=== PATIENT | male | born 1945 | race Hispanic/Latino ===

== ENCOUNTER 2019-08-05 12:33 | Emergency (ER) | payer BC, MEDICARE, OTHER ==
[2019-08-05] MEDS ORDERED: NA CHLORIDE 0.9% 1,000 ML ONE ×2 (13:26→14:27)
[2019-08-05 13:56] LABS: Absolute Lymphocytes (CBC) 0.7 K/uL (0.7-4.9); Basophils % 0.1 % (0-1.3); Hematocrit 48.6 % (39.6-49.0); Lymphocytes % 7.8 % (15.3-44.8); MPV 10.8 fL (7.6-11.3); Protime INR 1.04; RBC Red Blood Cell Count 5.24 M/uL (4.33-5.43)
--- NOTE | 2019-08-05 13:57 | RAD REPORT ---
EXAM DESCRIPTION: RAD - Chest Single View - 08/05/2019 1:42 pm CLINICAL HISTORY: Weakness, shortness of breath COMPARISON: None. TECHNIQUE: AP portable chest image was obtained 1317 hours . FINDINGS: Lung volumes are low. No acute lung parenchymal process seen. Heart and vasculature are no rmal. No measurable pleural effusion and no pneumothorax. No acute bony abnormality seen. No acute ao rtic findings suspected. IMPRESSION: No acute cardiopulmonary process.
[2019-08-05 14:05] LABS: ALT/SGPT 23 U/L (12-78); AST/SGOT 20 U/L (15-37); Albumin 4.1 g/dL (3.4-5.0); Alkaline Phosphatase 68 U/L (45-117); BUN Blood Urea Nitrogen 30 mg/dL (7-18); Bicarbonate 23 mmol/L (21-32); Bilirubin Direct 0.3 mg/dL (0-0.2); CKMB Creatine Kinase MB 1.8 ng/mL (0.3-3.6); Creatine Phosphokinase 117 U/L (39-308); Glucose Level 106 mg/dL (74-106); Lipase 135 U/L (73-393); Potassium 4.6 mmol/L (3.5-5.1); Sodium Level 132 mmol/L (136-145); Troponin (Emerg Dept Use Only) < 0.02 ng/mL (0.0-0.045)
[2019-08-05 15:12] LABS: Blood Morphology Comment NOT SEEN (NOT SEEN); Platelet Estimate ADEQ; Platelets, Giant PRESENT
--- NOTE | 2019-08-05 15:45 | ER ---
Nurse's Notes [facility] Name: Max Orona Age: 74 yrs Sex: Male : 1945 Arrival Date: 08/05/2019 Time: 12:35 Bed 15 Private MD: Gray Gooden Diagnosis: Weakness;Renal Insufficiency Presentation: 08/05 12:51 Presenting complaint: Patient states: not eating/drinking much for past 26 days, feels iw nauseous when he tries to eat or drink, has generalized weakness and has fallen twice at home, was seen by Dr. Gooden on Friday and was told to just "try to eat more". Transition of care: patient was not received from another setting of care. Onset of symptoms was July 13, 2019. Risk Assessment: Do you want to hurt yourself or someone else? Patient reports no desire to harm self or others. Initial Sepsis Screen: Does the patient meet any 2 criteria? No. Patient's initial sepsis screen is negative. Does the patient have a suspected source of infection? No. Patient's initial sepsis screen is negative. Care prior to arrival: None. 12:51 Method Of Arrival: Wheelchair iw 12:51 Acuity: MIRACLE 3 iw Historical: - Allergies: 12:57 No Known Allergies; iw - Home Meds: 12:57 aspirin 81 mg Oral TbEC 1 tab once daily [Active]; clonidine HCl 0.1 mg Oral tab 1 tab iw 2 times per day [Active]; metoprolol tartrate 25 mg Oral tab 1 tab 2 times per day [Active]; irbesartan 300 mg oral tab 1 tab once daily [Active]; - Immunization history:: Adult Immunizations up to date. - Ebola Screening: : Patient negative for fever greater than or equal to 101.5 degrees Fahrenheit, and additional compatible Ebola Virus Disease symptoms Patient denies exposure to infectious person Patient denies travel to an Ebola-affected area in the 21 days before illness onset No symptoms or risks identified at this time. - Social history:: Smoking status: Patient/guardian denies using tobacco. Screenin:50 Abuse screen: Denies threats or abuse. Nutritional screening: decreased appetite. rb1 Tuberculosis screening: No symptoms or risk factors identified. Fall Risk No fall in past 12 months (0 pts). Secondary diagnosis (15 points) weakness. No IV (0 pts). Ambulatory Aid- Crutches/Cane/Walker (15 pts). Gait- Weak (10 pts.). Mental Status- Oriented to own ability (0 pts). Total Damon Fall Scale indicates Low Risk Score (25-44 pts). Fall prevention measures have been instituted. Side Rails Up X 2 Placed close to Nursing Station 1:1 attendant Assigned to Pt. Frequent Obs/Assesments occuring Family Present and informed to notify staff if they need to leave bedside As available Patient and Family Educated on Fall Prevention Program and strategies. Assessment: 12:50 General: Appears in no apparent distress. comfortable, Behavior is calm, cooperative, rb1 Reports fatigue for Denies fever, Decreased appetite and general weakness x 3 weeks. Pain: Denies pain. Neuro: Level of Consciousness is awake, alert, obeys commands, Oriented to person, place, time, situation, Reports weakness in generalized since x 3 weeks. Cardiovascular: Capillary refill < 3 seconds is brisk in bilateral fingers. Respiratory: Reports cough that is Airway is patent Respiratory effort is even, unlabored, Respiratory pattern is regular, symmetrical. GI: Reports constipation, last BM was yesterday. : Reports decreases urine output. EENT: Throat Hoarseness is noted when the pt. speaks, family reports that this is not normal for him. Derm: Skin is pink, warm \\T\\ dry. Musculoskeletal: Pt. reports not being able to get up and move around due to being too weak. 13:50 Reassessment: Patient appears in no apparent distress at this time. No changes from rb1 previously documented assessment. 14:50 Reassessment: Patient appears in no apparent distress at this time. Patient and/or rb1 family updated on plan of care and expected duration. Pain level reassessed. Patient is alert, oriented x 3, equal unlabored respirations, skin warm/dry/pink. Patient denies pain at this time. Vital Signs: 12:50 Weight 60.78 kg (R); Height 5 ft. 3 in. (160.02 cm) (R); Pain 0/10; rb1 12:57 BP 189 / 94; Pulse 59; Resp 16 S; Temp 98.2; Pulse Ox 99% on R/A; iw 13:57 BP 188 / 85; Pulse 61; Resp 20; Pulse Ox 99% on R/A; rb1 14:55 BP 198 / 88; Pulse 67; Resp 17; Pulse Ox 99% on R/A; Pain 0/10; rb1 12:50 Body Mass Index 23.74 (60.78 kg, 160.02 cm) rb1 ED Course: 12:35 Patient arrived in ED. as 12:36 Gray Gooden DO is Private Physician. as 12:44 Scottie Jackson MD is Attending Physician. kdr 12:49 Amanda Tavera, RN is Primary Nurse. rb1 12:50 Patient has correct armband on for positive identification. Bed in low position. Call rb1 light in reach. Side rails up X2. Pulse ox on. NIBP on. 12:56 Triage completed. iw 12:57 Arm band placed on. iw 13:15 Initial lab(s) drawn, by me, sent to lab. First set of blood cultures drawn by me. jb1 Inserted saline lock: 22 gauge in right antecubital area, using aseptic technique. Blood collected. 13:30 Second set of blood cultures drawn by me. jb1 13:42 Chest Single View XRAY In Process Unspecified. EDMS 13:44 EKG done, by cytometry technologist. reviewed by Scottie Jackson MD. sm3 15:43 Gray Gooden DO is Referral Physician. kdr Administered Medications: 13:32 Drug: NS 0.9% (30 ml/kg) 30 ml/kg Route: IV; Rate: bolus; Site: right antecubital; rb1 14:54 Drug: NS 0.9% (30 ml/kg) 30 ml/kg Route: IV; Rate: bolus; Site: right antecubital; rb1 Output: 14:43 Urine: 250ml (Voided); Total: 250ml. rb1 Outcome: 15:44 Discharge ordered by . kdr 16:32 Patient left the ED. rb1 Signatures: Dispatcher [employer] EDMS Eduardo Marion jb1 Scottie Jackson MD MD kdr Danae Tijerina Irene, CINDY RN iw Amanda Tavera, CINDY RN rb1 Juliana Degroot sm3
--- NOTE | 2019-08-05 15:45 | EDPHYS ---
Physician Documentation [facility] Name: Max Orona Age: 74 yrs Sex: Male : 1945 Arrival Date: 08/05/2019 Time: 12:35 Bed 15 Private MD: Giacomo [facility] ED Physician Scottie Jackson HPI: 08/05 17:20 This 74 yrs old Male presents to ER via Wheelchair with complaints of kdr Decreased Appetite, General Weakness. 17:20 The [id number] states that for the past 25 day, the patient has become kdr increasingly weak. His appetite has been poor and he has lost greater than twenty pounds. He lost his not long ago and has been increasingly bed bound. He has no focal c/o and is o/w not in any acute threat. Family states that hi voice has been slightly more hoarse in the last few days but the patient denies any dysphagia. Onset: The symptoms/episode began/occurred gradually, 25 day(s) ago. Severity of symptoms: At their worst the symptoms were mild moderate in the emergency department the symptoms are unchanged. The patient has not experienced similar symptoms in the past. The patient has not recently seen a physician. Generally weak and loss of appetite. Historical: - Allergies: 12:57 No Known Allergies; iw - Home Meds: 12:57 aspirin 81 mg Oral TbEC 1 tab once daily [Active]; clonidine HCl 0.1 mg Oral tab 1 tab iw 2 times per day [Active]; metoprolol tartrate 25 mg Oral tab 1 tab 2 times per day [Active]; irbesartan 300 mg oral tab 1 tab once daily [Active]; - Immunization history:: Adult Immunizations up to date. - Ebola Screening: : Patient negative for fever greater than or equal to 101.5 degrees Fahrenheit, and additional compatible Ebola Virus Disease symptoms Patient denies exposure to infectious person Patient denies travel to an Ebola-affected area in the 21 days before illness onset No symptoms or risks identified at this time. - Social history:: Smoking status: Patient/guardian denies using tobacco. ROS: 17:20 Constitutional: Negative for fever, chills - he has had weight loss and generalized kdr weakness Eyes: Negative for injury, pain, redness, and discharge, Neck: Negative for injury, pain, and swelling, Cardiovascular: Negative for chest pain, palpitations, and edema, Respiratory: Negative for shortness of breath, cough, wheezing, and pleuritic chest pain, Abdomen/GI: Negative for abdominal pain, nausea, vomiting, diarrhea, and constipation, Back: Negative for injury and pain, : Negative for injury, bleeding, discharge, and swelling, MS/Extremity: Negative for injury and deformity, Skin: Negative for injury, rash, and discoloration, Neuro: Negative for headache, weakness, numbness, tingling, and seizure activity. Psych: Negative for depression, anxiety, suicide ideation, homicidal ideation, and hallucinations, Allergy/Immunology: Negative for hives, rash, and allergies, Endocrine: Negative for neck swelling, polydipsia, polyuria, polyphagia, and marked weight changes, Hematologic/Lymphatic: Negative for swollen nodes, abnormal bleeding, and unusual bruising. Exam: 17:20 Constitutional: This is a well developed, well nourished patient who is awake, alert, kdr and in no acute distress. Head/Face: Normocephalic, atraumatic. Eyes: Pupils equal round and reactive to light, extra-ocular motions intact. Lids and lashes normal. Conjunctiva and sclera are non-icteric and not injected. Cornea within normal limits. Periorbital areas with no swelling, redness, or edema. Neck: Trachea midline, no thyromegaly or masses palpated, and no cervical lymphadenopathy. Supple, full range of motion without nuchal rigidity, or vertebral point tenderness. No Meningismus. Chest/axilla: Normal chest wall appearance and motion. Nontender with no deformity. No lesions are appreciated. Cardiovascular: Regular rate and rhythm with a normal S1 and S2. No gallops, murmurs, or rubs. Normal PMI, no JVD. No pulse deficits. Respiratory: Lungs have equal breath sounds bilaterally, clear to auscultation and percussion. No rales, rhonchi or wheezes noted. No increased work of breathing, no retractions or nasal flaring. Abdomen/GI: Soft, non-tender, with normal bowel sounds. No distension or tympany. No guarding or rebound. No evidence of tenderness throughout. Back: No spinal tenderness. No costovertebral tenderness. Full range of motion. Skin: Warm, dry with normal turgor. Normal color with no rashes, no lesions, and no evidence of cellulitis. MS/ Extremity: Pulses equal, no cyanosis. Neurovascular intact. Full, normal range of motion. Psych: Awake, alert, with orientation to person, place and time. Behavior, mood, and affect are within normal limits. 17:20 Neuro: The patient is generally weak but otherwise is stable. Vital Signs: 12:50 Weight 60.78 kg (R); Height 5 ft. 3 in. (160.02 cm) (R); Pain 0/10; rb1 12:57 BP 189 / 94; Pulse 59; Resp 16 S; Temp 98.2; Pulse Ox 99% on R/A; iw 13:57 BP 188 / 85; Pulse 61; Resp 20; Pulse Ox 99% on R/A; rb1 14:55 BP 198 / 88; Pulse 67; Resp 17; Pulse Ox 99% on R/A; Pain 0/10; rb1 12:50 Body Mass Index 23.74 (60.78 kg, 160.02 cm) rb1 MDM: 15:44 Patient medically screened. kdr 17:20 Data reviewed: vital signs, nurses notes, lab test result(s), radiologic studies. kdr Counseling: I had a detailed discussion with the patient and/or guardian regarding: the historical points, exam findings, and any diagnostic results supporting the discharge/admit diagnosis, lab results, radiology results, the need for outpatient follow up. ED course: hosted services analyst came to the ED and helped facilitate Home Health Care. The patient was able to stand and pivot to a wheel chair without problems. 08/05 12:58 Order name: Basic Metabolic Panel; Complete Time: 14:50 kdr 08/05 12:58 Order name: Blood Culture Adult (2) kdr 08/05 12:58 Order name: CBC with Diff kdr 08/05 12:58 Order name: Ckmb; Complete Time: 14:50 kdr 08/05 12:58 Order name: CPK; Complete Time: 14:50 kdr 08/05 12:58 Order name: Lactate; Complete Time: 14:50 kdr 08/05 12:58 Order name: LFT's; Complete Time: 14:50 kdr 08/05 12:58 Order name: Lipase; Complete Time: 14:50 kdr 08/05 12:58 Order name: Procalcitonin; Complete Time: 14:50 kdr 08/05 12:58 Order name: Protime (+inr); Complete Time: 14:50 kdr 08/05 12:58 Order name: Ptt, Activated; Complete Time: 14:50 kdr 08/05 12:58 Order name: Troponin (emerg Dept Use Only); Complete Time: 14:50 kdr 08/05 12:58 Order name: Urine Microscopic Only kdr 08/05 13:39 Order name: Glucose, Ancillary Testing; Complete Time: 13:41 EDMS 08/05 12:58 Order name: Chest Single View XRAY; Complete Time: 14:50 kdr 08/05 12:58 Order name: Accucheck; Complete Time: 13:31 kdr 08/05 12:58 Order name: Cardiac monitoring; Complete Time: 13:31 kdr 08/05 12:58 Order name: EKG - Nurse/Tech; Complete Time: 13:58 kdr 08/05 12:58 Order name: IV Saline Lock - Large Bore; Complete Time: 13:32 kdr 08/05 12:58 Order name: Labs collected and sent; Complete Time: 13:32 kdr 08/05 12:58 Order name: O2 Per Protocol; Complete Time: 13:32 kdr 08/05 12:58 Order name: O2 Sat Monitoring; Complete Time: 13:32 kdr 08/05 12:58 Order name: Urine Dipstick-Ancillary (obtain specimen); Complete Time: 15:57 kdr 08/05 13:40 Order name: EKG; Complete Time: 13:41 em1 08/05 15:12 Order name: Manual Differential EDMS 08/05 15:58 Order name: Urine Dipstick--Ancillary (enter results) em1 Administered Medications: 13:32 Drug: NS 0.9% (30 ml/kg) 30 ml/kg Route: IV; Rate: bolus; Site: right antecubital; rb1 14:54 Drug: NS 0.9% (30 ml/kg) 30 ml/kg Route: IV; Rate: bolus; Site: right antecubital; rb1 Disposition: 08/05/19 15:44 Discharged to Home. Impression: Weakness, Renal Insufficiency. - Condition is Stable. - Discharge Instructions: Weakness, [id number]. - Prescriptions for Home Health Services Consultation - Home Health Service Consultation. - Medication Reconciliation Form, Thank You Letter form. - Follow up: GoodenGray kimball DO; When: 2 - 3 days; Reason: If symptoms return, Further diagnostic work-up, Recheck today's complaints, Continuance of care, Re-evaluation by your physician. - Problem is new. - Symptoms have improved. Signatures: Dispatcher [employer] Scottie Daley MD MD kdr Sabrina Hinds RN RN iw Amanda Tavera, RN RN rb1 Corrections: (The following items were deleted from the chart) 16:32 15:44 08/05/2019 15:44 Discharged to Home. Impression: Weakness; Renal Insufficiency. rb1 Condition is Stable. Forms are Medication Reconciliation Form, Thank You Letter, Antibiotic Education, Prescription Opioid Use. Follow up: Gray Gooden; When: 2 - 3 days; Reason: If symptoms return, Further diagnostic work-up, Recheck today's complaints, Continuance of care, Re-evaluation by your physician. Problem is new. Symptoms have improved. kdr
[2019-08-05 16:00] LABS: Urine Blood NEGATIVE (NEG); Urine Glucose NEGATIVE (NEG); Urine Protein TRACE (NEG)
[2019-08-05 16:38] VITALS: TEMP 98.2; O2SAT 99
[2019-08-05 16:40] VITALS: BP 198/88
[2019-08-05 17:11] LABS: Urine Bacteria <20 /HPF (NONE SEEN); Urine Culture Reflex Order NOT NEEDED; Urine Mucus 2+ /HPF (NONE SEEN); Urine RBC <5 /HPF (NONE SEEN)
--- NOTE | 2019-08-06 07:24 | EKG ---
Test Date: 2019-08-05 Test Time: 13:41:17 Marketing Technology Coordinator: PRITI MEASUREMENT RESULTS: Intervals: Rate: 56 DC: 124 QRSD: 72 QT: 466 QTc: 449 Ranger: P: 52 DC: 124 QRS: 38 T: 41 INTERPRETIVE STATEMENTS: Sinus bradycardia Otherwise normal ECG No previous ECG available for comparison Electronically Signed On 08-06-19 07:22:15 CDT by Cheko Mccoy
== END 2019-08-05 16:32 | disposition home or self-care (01) ==
LOC: ER 12:33
DX: N28.9 Disorder of kidney and ureter, unspecified (principal); Z79.82 Long term (current) use of aspirin
CPT/HCPCS: 93005; 87040 ×2; 85025; 80048; 36415; 82550; 85610; 82947; 80076; 83605; 85730; 84484; 82553; 83690; 84145; 71045; 99284; J7030 ×2; 81003; 81015; 96374

== ENCOUNTER 2019-08-20 12:56 | Inpatient (IN) | payer MEDICARE ==
--- NOTE | 2019-08-20 13:57 | RAD REPORT ---
EXAM DESCRIPTION: RAD - Chest Single View - 08/20/2019 1:46 pm CLINICAL HISTORY: Cough, difficulty swallowing and eating COMPARISON: July 2019 TECHNIQUE: AP portable chest image was obtained 1342 hours . FINDINGS: Lungs are clear. Heart and vasculature are normal. No measurable pleural effusion and no p neumothorax. No acute bony abnormality seen. No acute aortic findings suspected. IMPRESSION: No acute cardiopulmonary process. No suspicious change from comparison.
[2019-08-20 14:01] LABS: Basophils % 0.3 % (0-1.3); Hematocrit 55.2 % (39.6-49.0); Lymphocytes % 7.4 % (15.3-44.8); MPV 10.4 fL (7.6-11.3); RBC Red Blood Cell Count 5.98 M/uL (4.33-5.43)
[2019-08-20] MEDS ORDERED: NA CHLORIDE 0.9% 1,000 ML ONE ×2 (14:01→14:28)
[2019-08-20 14:08] LABS: Protime INR 1.1
[2019-08-20] MEDS ORDERED: HYDROCORTISONE SUC 100 MG INJ ONE (14:28)
[2019-08-20] MEDS ORDERED: THIAMINE 200 MG/2 ML INJ ONE (14:28)
[2019-08-20] MEDS ORDERED: NA CHLORIDE 0.9% 100 ML IV ONE (14:28)
[2019-08-20] MEDS ORDERED: FOLIC ACID 5 MG/ML VIAL ONE (14:29)
[2019-08-20] MEDS ORDERED: CEFTRIAXONE/SWI 1gm 1 GM/10 ML SYR ONE (14:30)
[2019-08-20 14:31] LABS: Blood Morphology Comment NOT SEEN (NOT SEEN); Platelet Estimate ADEQ; Urine White Blood Cell Casts OK
--- NOTE | 2019-08-20 14:34 | RAD REPORT ---
EXAM DESCRIPTION: CT - Head Brain Wo Cont - 08/20/2019 2:28 pm CLINICAL HISTORY: Declining state, transient alteration of awareness COMPARISON: None. TECHNIQUE: Axial 5 mm thick images of the head were obtained without IV contrast. All CT scans are performed using dose optimization technique as appropriate and may include automated exposure control or mA/KV adjustment according to patient size. FINDINGS: No intracranial hemorrhage, mass, edema or shift of mid-line structures. No acute infarcti on changes seen. No abnormal extra-axial fluid collections. Minimal atrophy and chronic ischemic del real ge. Ventricles are normal. Mastoid air cells and visualized portions of the paranasal sinuses are clear. No acute bony findings. Arterial tree calcifications are present. IMPRESSION: Negative non-contrast CT head examination for acute or significant finding.
--- NOTE | 2019-08-20 14:44 | EDPHYS ---
Physician Documentation [facility] Name: Max Orona Age: 74 yrs Sex: Male : 1945 Arrival Date: 08/20/2019 Time: 13:02 Bed 5 Private MD: ED Physician Zachary Connors HPI: 08/20 14:08 This 74 yrs old Male presents to ER via Ambulatory with complaints of gemma Decreased Appetite, Dehydration. 14:08 failure to thrive. The patient presents with confusion, decreased mental status, gemma decreased responsiveness. Onset: The symptoms/episode began/occurred 3 week(s) ago. Possible causes: unknown. Associated signs and symptoms: The patient has no apparent associated signs or symptoms. Onset: The symptoms/episode began/occurred. Current symptoms: In the emergency department the patient's symptoms are unchanged from the initial presentation. Patient's baseline: Neuro: alert and fully oriented. Severity of symptoms: At their worst the symptoms were mild moderate in the emergency department the symptoms are unchanged. Historical: - Allergies: 13:13 No Known Allergies; la1 - Home Meds: 13:51 Zoloft 25 mg Oral tab 1 tab once daily [Active]; mirtazapine 15 mg Oral TbDL 1 tab once bp daily [Active]; Zofran (as hydrochloride) 4 mg Oral tab 1 tabs every 8 hours [Active]; irbesartan 300 mg Oral tab 1 tab once daily [Active]; Nifedipine ER Oral 30 mg daily [Active]; carvedilol 25 mg oral tab 1 tab every 12 hours [Active]; - PMHx: 13:51 ADULT FAILURE TO THRIVE; Depression; Hypertension; ACUTE KIDNEY FAILURE; NEUROPATHY; bp POLYCYTHEMIA; - Immunization history:: Adult Immunizations up to date. - Social history:: Smoking status: unknown. - Ebola Screening: : No symptoms or risks identified at this time. - Family history:: not pertinent. ROS: 14:08 Constitutional: Negative for fever, chills, and weight loss, Eyes: Negative for injury, gemma pain, redness, and discharge, ENT: Negative for injury, pain, and discharge, Neck: Negative for injury, pain, and swelling, Cardiovascular: Negative for chest pain, palpitations, and edema, Respiratory: Negative for shortness of breath, cough, wheezing, and pleuritic chest pain, Abdomen/GI: Negative for abdominal pain, nausea, vomiting, diarrhea, and constipation, Back: Negative for injury and pain, : Negative for injury, bleeding, discharge, and swelling, MS/Extremity: Negative for injury and deformity, Skin: Negative for injury, rash, and discoloration, Neuro: Negative for headache, weakness, numbness, tingling, and seizure, Allergy/Immunology: Negative for hives, rash, and allergies, Endocrine: Negative for neck swelling, polydipsia, polyuria, polyphagia, and marked weight changes, Hematologic/Lymphatic: Negative for swollen nodes, abnormal bleeding, and unusual bruising. 14:08 Psych: Positive for depression. Exam: 14:08 Constitutional: This is a well developed, well nourished patient who is awake, alert, gemma and in no acute distress. Head/Face: Normocephalic, atraumatic. Eyes: Pupils equal round and reactive to light, extra-ocular motions intact. Lids and lashes normal. Conjunctiva and sclera are non-icteric and not injected. Cornea within normal limits. Periorbital areas with no swelling, redness, or edema. ENT: Nares patent. No nasal discharge, no septal abnormalities noted. Tympanic membranes are normal and external auditory canals are clear. Oropharynx with no redness, swelling, or masses, exudates, or evidence of obstruction, uvula midline. Mucous membranes moist. Neck: Trachea midline, no thyromegaly or masses palpated, and no cervical lymphadenopathy. Supple, full range of motion without nuchal rigidity, or vertebral point tenderness. No Meningismus. Chest/axilla: Normal chest wall appearance and motion. Nontender with no deformity. No lesions are appreciated. Cardiovascular: Regular rate and rhythm with a normal S1 and S2. No gallops, murmurs, or rubs. Normal PMI, no JVD. No pulse deficits. Respiratory: Lungs have equal breath sounds bilaterally, clear to auscultation and percussion. No rales, rhonchi or wheezes noted. No increased work of breathing, no retractions or nasal flaring. Abdomen/GI: Soft, non-tender, with normal bowel sounds. No distension or tympany. No guarding or rebound. No evidence of tenderness throughout. Back: No spinal tenderness. No costovertebral tenderness. Full range of motion. Male : Normal genitalia with no discharge or lesions. Skin: Warm, dry with normal turgor. Normal color with no rashes, no lesions, and no evidence of cellulitis. MS/ Extremity: Pulses equal, no cyanosis. Neurovascular intact. Full, normal range of motion. Psych: Awake, alert, with orientation to person, place and time. Behavior, mood, and affect are within normal limits. 14:08 Neuro: Orientation: unable to test, Mentation: slow to respond, confused, Memory: unable to test, Cranial nerves: is grossly normal based on the patient's age, no acute changes, Cerebellar function: unable to test, Motor: Gait: not tested. seizure activity, is not displayed by the patient. 16:27 Neck: ROM/movement: is normal, no acute changes, limited range of motion, is not gemma appreciated, Meningeal signs: are not present, Kernig's sign is negative, Brudzinski's sign is negative. Vital Signs: 13:13 BP 177 / 133; Pulse 74; Resp 14; Temp 98.3(O); Pulse Ox 98% on R/A; Weight 59.87 kg; la1 13:54 BP 180 / 122; Pulse 100; Resp 20; Pulse Ox 99% ; bp 14:42 BP 164 / 98; Pulse 86; Resp 24; Pulse Ox 98% on R/A; ms 15:30 BP 183 / 91; Pulse 87; Resp 20; Pulse Ox 99% ; bp 16:34 BP 169 / 119; Pulse 93; Resp 21; Pulse Ox 98% ; bp MDM: 13:33 Patient medically screened. [facility] 14:11 Data reviewed: vital signs, nurses notes, lab test result(s), EKG, radiologic studies, [facility] CT scan, plain films. 08/20 13:31 Order name: Basic Metabolic Panel; Complete Time: 16:21 [facility] 08/20 13:31 Order name: CBC with Diff; Complete Time: 14:41 [facility] 08/20 13:31 Order name: LFT's; Complete Time: 16:21 [facility] 08/20 13:31 Order name: Magnesium; Complete Time: 16:21 [facility] 08/20 13:31 Order name: NT PRO-BNP; Complete Time: 16:21 [facility] 08/20 13:31 Order name: PT-INR; Complete Time: 14:12 [facility] 08/20 13:31 Order name: Troponin (emerg Dept Use Only); Complete Time: 16:21 [facility] 08/20 13:31 Order name: XRAY Chest (1 view); Complete Time: 14:12 [facility] 08/20 13:31 Order name: Lipase; Complete Time: 16:21 [facility] 08/20 13:31 Order name: TSH; Complete Time: 16:21 [facility] 08/20 14:03 Order name: CBC Smear Scan; Complete Time: 14:41 [facility] 08/20 14:13 Order name: Blood Culture Adult (2) [facility] 08/20 16:58 Order name: Urine Culture [facility] 08/20 17:03 Order name: Urine Dipstick--Ancillary (enter results) 08/20 13:31 Order name: EKG; Complete Time: 13:32 [facility] 08/20 13:31 Order name: Cardiac monitoring; Complete Time: 13:50 [facility] 08/20 13:31 Order name: EKG - Nurse/Tech; Complete Time: 13:54 [facility] 08/20 13:31 Order name: IV Saline Lock; Complete Time: 13:50 [facility] 08/20 13:31 Order name: Labs collected and sent; Complete Time: 13:51 [facility] 08/20 13:31 Order name: O2 Per Protocol; Complete Time: 13:51 [facility] 08/20 13:31 Order name: O2 Sat Monitoring; Complete Time: 13:51 [facility] 08/20 13:31 Order name: Urine Dipstick-Ancillary (obtain specimen); Complete Time: 16:59 [facility] 08/20 13:58 Order name: Labs - recollect needed: green top recollection; Complete Time: 14:04 aa 08/20 14:07 Order name: CT Head Brain wo Cont; Complete Time: 14:41 [facility] 08/20 16:23 Order name: Carter; Complete Time: 16:46 [facility] Administered Medications: 13:45 Drug: NS 0.9% 1000 ml Route: IV; Rate: 125 ml/hr; Site: right antecubital; bp 16:31 Follow up: IV Status: Infusion continued upon admission bp 14:30 Drug: NS 0.9% 1000 ml Route: IV; Rate: 1 bolus; Site: right forearm; bp 16:32 Follow up: IV Status: Completed infusion; IV Intake: 1000ml bp 14:30 Drug: Solu-CORTEF 100 mg Route: IVP; Site: right forearm; bp 16:32 Follow up: Response: No adverse reaction bp 14:30 Drug: foLIC Acid 1 mg Route: IVPB; Site: right forearm; bp 16:32 Follow up: IV Status: Completed infusion bp 14:30 Drug: Thiamine 100 mg Route: IV; Rate: bolus; Site: right forearm; bp 16:32 Follow up: IV Status: Completed infusion bp 14:45 Drug: Rocephin 1 grams Route: IV; Rate: per protocol; Site: right forearm; bp 16:31 Follow up: IV Status: Completed infusion; IV Intake: 50ml bp Disposition: 08/20/19 14:43 Hospitalization ordered by Jesus Davis for Inpatient Admission. Preliminary diagnosis are Altered mental status, unspecified, Weakness, Dehydration, Anorexia, Urinary tract infection, site not specified. - Bed requested for Telemetry/MedSurg (Inpatient). - Status is Inpatient Admission. bp - Condition is Fair. - Problem is new. - Symptoms are unchanged. UTI on Admission? Yes Signatures: Dispatcher [employer] EDMS Zachary Connors MD MD cha Calderon, Audri, RN RN aa5 Karan Howard RN RN la1 Florencoi Charles, RN RN Kylah Bauer Corrections: (The following items were deleted from the chart) 16:42 14:43 Hospitalization Ordered by Jesus Davis for Inpatient Admission. Preliminary eb diagnosis is Altered mental status, unspecified; Weakness; Dehydration; Anorexia. Bed requested for Telemetry/MedSurg (Inpatient). Status is Inpatient Admission. Condition is Fair. Problem is new. Symptoms are unchanged. UTI on Admission? No. gemma 16:59 16:42 08/20/2019 14:43 Hospitalization Ordered by Jesus Davis for Inpatient gemma Admission. Preliminary diagnosis is Altered mental status, unspecified; Weakness; Dehydration; Anorexia. Bed requested for [facility] ER HOLD. Status is Inpatient Admission. Condition is Fair. Problem is new. Symptoms are unchanged. UTI on Admission? No. eb 17:01 16:59 08/20/2019 14:43 Hospitalization Ordered by Jesus Davis for Inpatient eb Admission. Preliminary diagnosis is Altered mental status, unspecified; Weakness; Dehydration; Anorexia; Urinary tract infection, site not specified. Bed requested for [facility] ER HOLD. Status is Inpatient Admission. Condition is Fair. Problem is new. Symptoms are unchanged. UTI on Admission? Yes. gemma 17:47 17:01 08/20/2019 14:43 Hospitalization Ordered by Jesus Davis for Inpatient bp Admission. Preliminary diagnosis is Altered mental status, unspecified; Weakness; Dehydration; Anorexia; Urinary tract infection, site not specified. Bed requested for Telemetry/MedSurg (Inpatient). Status is Inpatient Admission. Condition is Fair. Problem is new. Symptoms are unchanged. UTI on Admission? Yes. eb
--- NOTE | 2019-08-20 14:44 | ER ---
Nurse's Notes [facility] Name: Max Orona Age: 74 yrs Sex: Male : 1945 Arrival Date: 08/20/2019 Time: 13:02 Bed 5 Private MD: Diagnosis: Altered mental status, unspecified;Weakness;Dehydration;Anorexia;Urinary tract infection, site not specified Presentation: 08/20 13:12 Presenting complaint: Patient states: Hes at [facility] and not eating or la1 drinking, they are supposed to do a swallow study next week but he seems like he is getting worse and they told me to bring him here. Transition of care: patient was not received from another setting of care. Onset of symptoms was August 20, 2019. Risk Assessment: Do you want to hurt yourself or someone else? Patient reports no desire to harm self or others. Initial Sepsis Screen: Does the patient meet any 2 criteria? No. Patient's initial sepsis screen is negative. Does the patient have a suspected source of infection? No. Patient's initial sepsis screen is negative. Care prior to arrival: None. 13:12 Method Of Arrival: Ambulatory la1 13:12 Acuity: MIRACLE 2 la1 Triage Assessment: 13:15 General: Appears distressed, comfortable, ill, Behavior is listless. Pain: Unable to bp use pain scale. Does not appear to understand pain scale. EENT: No deficits noted. Neuro: Level of Consciousness is lethargic. Cardiovascular: Rhythm is sinus tachycardia. Respiratory: No deficits noted. GI: Parent/caregiver reports the patient having intolerance of food, intolerance of fluids. : No signs and/or symptoms were reported regarding the genitourinary system. Derm: No deficits noted. Musculoskeletal: No deficits noted. Historical: - Allergies: 13:13 No Known Allergies; la1 - Home Meds: 13:51 Zoloft 25 mg Oral tab 1 tab once daily [Active]; mirtazapine 15 mg Oral TbDL 1 tab once bp daily [Active]; Zofran (as hydrochloride) 4 mg Oral tab 1 tabs every 8 hours [Active]; irbesartan 300 mg Oral tab 1 tab once daily [Active]; Nifedipine ER Oral 30 mg daily [Active]; carvedilol 25 mg oral tab 1 tab every 12 hours [Active]; - PMHx: 13:51 ADULT FAILURE TO THRIVE; Depression; Hypertension; ACUTE KIDNEY FAILURE; NEUROPATHY; bp POLYCYTHEMIA; - Immunization history:: Adult Immunizations up to date. - Social history:: Smoking status: unknown. - Ebola Screening: : No symptoms or risks identified at this time. - Family history:: not pertinent. Screenin:31 Abuse screen: Denies threats or abuse. Denies injuries from another. Nutritional bp screening: No deficits noted. Tuberculosis screening: No symptoms or risk factors identified. Fall Risk None identified. Assessment: 13:15 General: SEE TRIAGE NOTE. bp 14:24 Reassessment: PT TO CT WITH PHARMACY ORDER ENTRY TECHNICIAN. bp 15:23 Reassessment: Contacted lab about complete lab results, lab states TSH,basic, BNP, aa5 Troponin need to be recollected. Phlebotomy was contacted about need for lab recollect. . Vital Signs: 13:13 BP 177 / 133; Pulse 74; Resp 14; Temp 98.3(O); Pulse Ox 98% on R/A; Weight 59.87 kg; la1 13:54 BP 180 / 122; Pulse 100; Resp 20; Pulse Ox 99% ; bp 14:42 BP 164 / 98; Pulse 86; Resp 24; Pulse Ox 98% on R/A; ms 15:30 BP 183 / 91; Pulse 87; Resp 20; Pulse Ox 99% ; bp 16:34 BP 169 / 119; Pulse 93; Resp 21; Pulse Ox 98% ; bp ED Course: 13:02 Patient arrived in ED. rg4 13:12 Triage completed. la1 13:13 Arm band placed on right wrist. la1 13:28 Florencio Charles, RN is Primary Nurse. bp 13:31 Zachary Connors MD is Attending Physician. gemma 13:47 XRAY Chest (1 view) In Process Unspecified. EDMS 13:51 Initial lab(s) drawn, by me, sent to lab. Inserted saline lock: 22 gauge in right ms forearm, using aseptic technique. Blood collected. 13:53 Patient has correct armband on for positive identification. Placed in gown. Bed in low bp position. Call light in reach. Side rails up X2. Adult w/ patient. 14:27 CT completed. Patient tolerated procedure well. Patient moved to CT via stretcher. sw Patient moved back from CT. 14:30 CT Head Brain wo Cont In Process Unspecified. EDND 14:35 EKG done, by e d tech. reviewed by Zachary Connors MD. 3 14:42 Jesus Davis is Hospitalizing Provider. gemma 16:46 Carter cath inserted, using sterile technique, 18 Fr., by ma, balloon inflated, to bp gravity drainage, urine specimen collected. Administered Medications: 13:45 Drug: NS 0.9% 1000 ml Route: IV; Rate: 125 ml/hr; Site: right antecubital; bp 16:31 Follow up: IV Status: Infusion continued upon admission bp 14:30 Drug: NS 0.9% 1000 ml Route: IV; Rate: 1 bolus; Site: right forearm; bp 16:32 Follow up: IV Status: Completed infusion; IV Intake: 1000ml bp 14:30 Drug: Solu-CORTEF 100 mg Route: IVP; Site: right forearm; bp 16:32 Follow up: Response: No adverse reaction bp 14:30 Drug: foLIC Acid 1 mg Route: IVPB; Site: right forearm; bp 16:32 Follow up: IV Status: Completed infusion bp 14:30 Drug: Thiamine 100 mg Route: IV; Rate: bolus; Site: right forearm; bp 16:32 Follow up: IV Status: Completed infusion bp 14:45 Drug: Rocephin 1 grams Route: IV; Rate: per protocol; Site: right forearm; bp 16:31 Follow up: IV Status: Completed infusion; IV Intake: 50ml bp Intake: 16:31 IV: 50ml; Total: 50ml. bp 16:32 IV: 1000ml; Total: 1050ml. bp Outcome: 14:43 Decision to Hospitalize by Provider. gemma 17:47 Patient left the ED. bp Signatures: Dispatcher [employer] EDMS Zachary Connors MD MD cha Villarreal, Maria ms Calderon, Audri, RN RN [id number] Karan Howard RN RN Tana Macias Rubi rg4 Peltier, Brian, RN RN Juliana Broussard sm3 Corrections: (The following items were deleted from the chart) 14:05 13:54 Pulse 100bpm; Resp 20bpm; Pulse Ox 99%; bp bp
[2019-08-20 16:12] LABS: ALT/SGPT 77 U/L (12-78); AST/SGOT 40 U/L (15-37); Albumin 3.4 g/dL (3.4-5.0); Alkaline Phosphatase 85 U/L (45-117); BUN Blood Urea Nitrogen 64 mg/dL (7-18); Bicarbonate 23 mmol/L (21-32); Bilirubin Direct 0.2 mg/dL (0-0.2); Bilirubin Total 0.8 mg/dL (0.2-1.0); Glucose Level 112 mg/dL (74-106); Lipase 193 U/L (73-393); Magnesium 2.7 mg/dL (1.8-2.4); NT PRO-BNP 713 pg/mL (<450); Potassium 4.8 mmol/L (3.5-5.1); Protein, Total 7.5 g/dL (6.4-8.2); Sodium Level 148 mmol/L (136-145); Troponin (Emerg Dept Use Only) < 0.02 ng/mL (0.0-0.045)
[2019-08-20 18:07] VITALS: BMI 23.3
--- NOTE | 2019-08-20 18:07 | P.HP ---
Certification for Inpatient Patient admitted to: Inpatient With expected LOS: >2 Midnights Practitioner: I am a practitioner with admitting privileges, knowledge of patient current condition, hospital course, and medical plan of care. 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 Patient noted to be awake and able communicating intermittently, aware he is in the hospital during my examination in the ED. Blood work in the ED revealed signs of dehydration including elevated BUN and creatinine as well as hypernatremia. He is noted to be afebrile. His hemoglobin is elevated to 18. The patient was diagnosed with secondary polycythemia [facility]. He also has mild leukocytosis. Head CT showed no acute findings. Chest x-ray demonstrated no acute disease. I met the daughter by his bedside was mostly concerned about patient's inability to eat and dehydration. Patient is admitted for failure to thrive with acute renal failure and hypernatremia. - Past Medical/Surgical History -: Idiopathic progressive polyneuropathy - Family History Family History: Reviewed- Non-Contributory - Social History Smoking Status: Never smoker Alcohol use: No CD- Drugs: No Place of Residence: Jail Review of Systems is unable to be obtained (Due to muteness) Physical Examination - Physical Exam General: In no apparent distress, Cachectic, Other (Mute. Communicate by nodding or shaking his head) HEENT: Atraumatic, PERRLA, Other (Dry oral mucosa), EOMI, Sclerae nonicteric Neck: Supple, JVD not distended Respiratory: Clear to auscultation bilaterally, Normal air movement Cardiovascular: No edema, Regular rate/rhythm, Normal S1 S2, No murmurs Capillary refill: <2 Seconds Gastrointestinal: Normal bowel sounds, Soft and benign, Non-distended, No tenderness Musculoskeletal: No swelling, No erythema Integumentary: No rashes Neurological: Other (Global spasticity-all 4 limbs. He moves all limbs spontaneous.) Urinary: Carter catheter - Studies Laboratory Data (last 24 hrs) 08/20/19 13:40: PT 12.9 H, INR 1.10 08/20/19 13:40: WBC 14.0 H, Hgb 18.8 H, Hct 55.2 H, Plt Count 267 Assessment and Plan - Problems (Diagnosis) (1) Idiopathic progressive polyneuropathy Current Visit: Yes Status: Acute (2) Failure to thrive Current Visit: Yes Status: Acute (3) Hypernatremia Current Visit: Yes Status: Acute (4) Acute renal failure Current Visit: Yes Status: Acute (5) Polycythemia, secondary Current Visit: Yes Status: Acute - Plan Patient is admitted to the medical floor. Will hydrate with IV D5 half-normal saline. NG tube to be inserted for feeding. Monitor renal roof panel hanger CBC. Patient wishes to remain full code at this time. Discussed hospice. Daughter is receptive of hospice. The patient and family need ongoing goals of care discussion. He is appropriate for hospice. PT and OT consult - Advance Directives Does patient have a Living Will: No Does patient have a Durable POA for Healthcare: No
[2019-08-20] MEDS ORDERED: ONDANSETRON 4 MG/2 ML VIAL IV PRN (18:10)
[2019-08-20] MEDS ORDERED: ACETAMINOPHEN 500 MG TAB PO PRN (18:10)
--- NOTE | 2019-08-20 20:10 | RAD REPORT ---
EXAM DESCRIPTION: RAD - Chest Single View - 08/20/2019 7:35 pm CLINICAL HISTORY: NGTube placement Chest pain. COMPARISON: <Comparisons> FINDINGS: Portable technique limits examination quality. The lungs are grossly clear. The heart is normal in size. Tip of the enteric tube appears in the dist al esophagus.
[2019-08-20] MEDS: D5 0.45 NS 1,000 ML IV SCH (20:13)
[2019-08-21] MEDS ORDERED: METOPROLOL TARTRATE 5 MG/5 ML INJ IV ONE ×2 (01:23→06:21)
[2019-08-21] MEDS: HEPARIN 5000 UNIT/ML 1 ML VIAL SQ SCH ×3 (02:08→16:27)
[2019-08-21] MEDS: D5 0.45 NS 1,000 ML IV SCH ×3 (05:34→16:11)
[2019-08-21 07:04] LABS: Potassium 4.5 mmol/L (3.5-5.1)
[2019-08-21 07:51] LABS: Basophils % 0.3 % (0-1.3); Hematocrit 51.4 % (39.6-49.0); Lymphocytes % 5.7 % (15.3-44.8); MPV 10.2 fL (7.6-11.3); RBC Red Blood Cell Count 5.59 M/uL (4.33-5.43)
[2019-08-21] MEDS ORDERED: CEFTRIAXONE 1 GM/NS 50 ML 1 GM/50 ML BAG IV SCH (09:00)
[2019-08-21] MEDS: CEFTRIAXONE/SWI 1gm 1 GM/10 ML SYR IVP SCH (09:36)
[2019-08-21] MEDS: METOPROLOL TAR 50 MG TAB PO SCH ×2 (09:36→20:20)
[2019-08-21] MEDS: POLYETHYL GLY 3350 17 GM/DOSE PO SCH (09:36)
[2019-08-21] MEDS: NIFEDIPINE XL 30 MG TABLET PO SCH (10:00)
[2019-08-21] MEDS ORDERED: JEVITY 1.2 CAL LIQUID 1,000 ML BOT FT SCH (10:00)
--- NOTE | 2019-08-21 11:06 | RAD REPORT ---
EXAM DESCRIPTION: RAD - Abdomen 1 View (KUB) - 08/21/2019 10:56 am CLINICAL HISTORY: NG tube placement COMPARISON: No comparisons FINDINGS: NG tube tip is in the proximal stomach. Side port of the tubing is near the GE junction. S tomach appears decompressed. Air is seen in nondilated small bowel loops. No free air or pneumatosis. IMPRESSION: NG tube has been placed. Tip is in the proximal portion of a decompressed stomach. Side port of the tubing is at the GE junction.
[2019-08-21 12:01] LABS: Albumin 3.2 g/dL (3.4-5.0); Potassium 3.6 mmol/L (3.5-5.1); Prealbumin 19.8 mg/dL (20-40)
--- NOTE | 2019-08-21 12:14 | P.PN ---
Subjective Date of Service: 08/21/19 Chief Complaint: Failure to thrive Patient not able to keep any subjective complaint. Family states patient symptoms have progressed rapidly over the past 1 week. He stops eating and started drooling since last week. Physical Examination - Vital Signs Temperature: 98.5 F Blood Pressure: 172/92 Pulse: 96 Respirations: 22 Pulse Ox (%): 96 - Physical Exam General: Other (Lethargic) HEENT: PERRLA, Other (Oral thrush) Neck: Supple, JVD not distended Respiratory: Clear to auscultation bilaterally, Normal air movement Cardiovascular: No edema, Regular rate/rhythm, Normal S1 S2 Gastrointestinal: Normal bowel sounds, Soft and benign, Non-distended, No tenderness Musculoskeletal: No swelling Integumentary: No breakdown Neurological: Other (Spastic in all extremities.) - Studies Laboratory Data (last 24 hrs) 08/20/19 13:40: PT 12.9 H, INR 1.10 08/20/19 13:40: WBC 14.0 H, Hgb 18.8 H, Hct 55.2 H, Plt Count 267 Assessment And Plan - Current Problems (Diagnosis) (1) Idiopathic progressive polyneuropathy Current Visit: Yes Status: Acute (2) Failure to thrive Current Visit: Yes Status: Acute (3) Hypernatremia Current Visit: Yes Status: Acute (4) Acute renal failure Current Visit: Yes Status: Acute (5) Polycythemia, secondary Current Visit: Yes Status: Acute - Plan Continue hydration with IV D5 half-normal saline. NG tube inserted for feeding. Start Jevity tube feeding. Start Rocephin for UTI Monitor renal skirt panel assembler CBC. Patient wishes to remain full code at this time. Discussed hospice. Daughter is receptive of hospice needs some time for goals of discussion. Plans is to rehydrate, start feeding and treat infection to see if dehydration and infection is contributing his progressive weakness. Otherwise would recommend hospice. PT and OT for now.
[2019-08-21] MEDS ORDERED: KCL 20 MEQ/100 mL IVPB 20 MEQ/100 ML BAG IV SCH (16:00)
[2019-08-21] MEDS ORDERED: IRBESARTAN 150 MG TAB PO SCH (21:00)
[2019-08-21] MEDS ORDERED: MIRTAZAPINE 15 MG TAB PO SCH (21:00)
[2019-08-21] MEDS ORDERED: HOME MED 1 EA UNK (Irbesartan [Avapro] 300 MG) PO SCH ×2 (21:00)
[2019-08-22] MEDS: D5 0.45 NS 1,000 ML IV SCH (00:10)
[2019-08-22] MEDS: HEPARIN 5000 UNIT/ML 1 ML VIAL SQ SCH ×2 (00:24→09:33)
[2019-08-22 06:58] LABS: Absolute Lymphocytes (CBC) 1.1 K/uL (0.7-4.9); Basophils % 0.4 % (0-1.3); Hematocrit 48.4 % (39.6-49.0); Lymphocytes % 7.7 % (15.3-44.8); MPV 10.2 fL (7.6-11.3); RBC Red Blood Cell Count 5.23 M/uL (4.33-5.43)
[2019-08-22 07:09] LABS: Urine White Blood Cell Casts OK
[2019-08-22 07:10] LABS: Blood Morphology Comment NOT SEEN (NOT SEEN); Platelet Estimate ADEQ
[2019-08-22 07:35] LABS: Albumin 2.6 g/dL (3.4-5.0); Bilirubin Total 0.9 mg/dL (0.2-1.0); Phosphorus 1.8 mg/dL (2.5-4.9); Potassium 3.7 mmol/L (3.5-5.1); Protein, Total 6.7 g/dL (6.4-8.2)
--- NOTE | 2019-08-22 08:26 | P.PN ---
Date of Service: 08/22/19 Spoke to patient's daughter Lavern Eduardo, . Updated her on patient 's condition and she wants to make him a do not attempt resuscitation as he would not want to live in the condition he is an at this time.
[2019-08-22] MEDS: ALBUTEROL 2.5 MG/3 ML NEB SOL NEB SCH ×3 (08:50→20:00)
--- NOTE | 2019-08-22 08:53 | RAD REPORT ---
EXAM DESCRIPTION: Laurie Single View08/22/2019 8:11 am CLINICAL HISTORY: Chest pain COMPARISON: August 20, 2019 FINDINGS: The left base is hazy. The right lung appears clear of acute infiltrate . The heart is normal size IMPRESSION: Left base is hazy probably a mild pneumonia
[2019-08-22] MEDS: POLYETHYL GLY 3350 17 GM/DOSE PO SCH (09:00)
[2019-08-22] MEDS ORDERED: IPRATROPIUM BROM 0.5MG/2.5ML NEB SCH ×2 (09:00→14:00)
[2019-08-22] MEDS ORDERED: METHYLPREDNISOLONE 125 MG INJ IV ONE (09:00)
[2019-08-22] MEDS: CEFTRIAXONE/SWI 1gm 1 GM/10 ML SYR IVP SCH (09:32)
[2019-08-22] MEDS: NIFEDIPINE XL 30 MG TABLET PO SCH (09:33)
[2019-08-22] MEDS: METOPROLOL TAR 50 MG TAB PO SCH (09:34)
--- NOTE | 2019-08-22 11:10 | P.PN ---
Subjective Date of Service: 08/22/19 Chief Complaint: Failure to thrive Patient not able to keep any subjective complaint. Patient patient noted to have gurgly respiration. I saw fluid backing out of the NG tube when he coughed and had difficulty clearing his secretions. It appears his clinical condition worsened since yesterday. Noted urine culture growing ESBL E. coli Patient has been afebrile. I had a lengthy discussion with the family during a family meeting regarding patient's current condition and prognosis. There were made aware his prognosis is poor. Family have agreed to proceed with comfort measures and hospice. Physical Examination - Vital Signs Temperature: 98.4 F Blood Pressure: 180/90 Pulse: 103 Respirations: 38 Pulse Ox (%): 96 - Physical Exam General: Other (Awake, lethargic.) HEENT: Mucous membr. moist/pink, Other (Oral Sandra) Neck: Supple, JVD not distended Respiratory: Other (Bilateral upper airway transmitted sounds.) Cardiovascular: No edema, Other (Tachycardic) Gastrointestinal: Normal bowel sounds, Soft and benign, Non-distended, No tenderness Musculoskeletal: No swelling Integumentary: No rashes Neurological: Other (Contracted bilateral hands, spastic in all extremities.) Assessment And Plan - Current Problems (Diagnosis) (1) Idiopathic progressive polyneuropathy Current Visit: Yes Status: Acute (2) Failure to thrive Current Visit: Yes Status: Acute (3) Hypernatremia Current Visit: Yes Status: Acute (4) Acute renal failure Current Visit: Yes Status: Acute (5) Polycythemia, secondary Current Visit: Yes Status: Acute - Plan Family have agreed to initiate comfort measures and transition to hospice Discontinue NGT. Stop tube feeding Discontinue antibiotic. Initiate comfort measures with IV opiates for pain and shortness of breath, atropine drops for excessive oral secretions, Ativan and Haldol p.r.n. for agitation Code status changed to DNR. Hospice consult to be done in a.m.
[2019-08-22] MEDS ORDERED: MORPHINE 4 MG/ML SYR IV PRN (11:27)
[2019-08-22] MEDS ORDERED: GLYCOPYRROLATE 0.2 MG/ML SYR IV PRN (11:28)
[2019-08-22] MEDS ORDERED: LORazepam 2 MG/ML VIAL IV PRN (11:29)
--- NOTE | 2019-08-22 12:50 | EKG ---
Test Date: 2019-08-20 Test Time: 14:12:19 Alarm Signaler: PRITI MEASUREMENT RESULTS: Intervals: Rate: 87 FL: 128 QRSD: 66 QT: 358 QTc: 430 [place]: P: 77 FL: 128 QRS: 74 T: 100 INTERPRETIVE STATEMENTS: Normal sinus rhythm ST & T wave abnormality, consider anterior ischemia Abnormal ECG Compared to ECG 08/05/2019 13:41:17 ST (T wave) deviation now present Possible ischemia now present Sinus bradycardia no longer present Electronically Signed On 08-22-19 12:45:41 UTILIZATION REVIEW NURSE by Cheko Mccoy
[2019-08-22] MEDS ORDERED: ALBUTEROL 2.5 MG/3 ML NEB SOL NEB SCH (14:00)
[2019-08-23] MEDS: ALBUTEROL 2.5 MG/3 ML NEB SOL NEB SCH ×3 (02:00→13:25)
[2019-08-23] MEDS: POLYETHYL GLY 3350 17 GM/DOSE PO SCH (07:52)
[2019-08-23 08:09] VITALS: O2SAT 97
[2019-08-23 08:22] VITALS: BP 137/81; TEMP 97.5
--- NOTE | 2019-08-24 05:41 | DS ---
Date of Discharge: 08/23/2019 Consultants: None. Admitting Diagnoses: 1.Idiopathic progressive polyneuropathy. 2.Failure to thrive. 3.Hypernatremia. 4.Acute dehydration. 5.Acute kidney injury. 6.Secondary polycythemia. Discharge Diagnoses: 1.Idiopathic progressive polyneuropathy. 2.Failure to thrive. 3.Hypernatremia. 4.Acute dehydration. 5.Acute kidney injury. 6.Secondary polycythemia. 7.Hypophosphatemia. 8.Acute cystitis secondary to ESBL E coli without hematuria. Hospital Course: Patient is a 74-year-old male with past medical history of recently diagnosed idiop athic progressive polyneuropathy at [facility] after flu-like illness with progressive neurolo gical symptoms, who was brought in from [facility] due to weakness and inability the ea t. Patient had difficulty communicating. CT of the head was negative for any acute changes. Patien t was found to have some leukocytosis. Patient was treated symptomatically. He had acute kidney inj ury. He was started on IV fluids. Kidney function improved slightly. He did have multiple electrol yte abnormalities as well. Patient also had hypernatremia likely due to dehydration. He was acidoti c with a lactate of 4.2, which improved down to 3.3. His overall condition was poor and he continued to deteriorate. Hospice option was given to the family, who agreed with the hospice care. Patient was also found to have UTI secondary to ESBL E coli. Patient was treated with meropenem. Overall, t he patient's condition continued to deteriorate. Family members agreed with hospice care including ela hernandez. Patient also had brother and niece at the bedside. The patient was at [facility] and was then discharged with hospice at home. Overall, patient has a poor prognosis. He will be discharged under care and comfort measures only. Physical Examination: General: Asleep, but arousable, elderly male, some mild distress, ill-appearing. CV: S1, S2. Respiratory: Diminished breath sounds. Gastrointestinal: Abdomen soft, nontender, nondistended. Positive bowel sounds. Extremities: No clubbing, cyanosis, edema. Neuro: The patient has generalized weakness. Total time spent discharging the patient was 38 minutes. DEVON Voice ID: [id number] Report ID: [id number]
[2019-08-25 16:32] LABS: Urine Blood 3+ (NEG); Urine Glucose NEGATIVE (NEG); Urine Protein TRACE (NEG); Urine Specific Gravity 1.015 (1.005-1.030)
== END 2019-08-23 17:45 | disposition hospice, home (50) | DRG 74 ==
LOC: ER 12:56 → ERHOLD 15:09 → 4TH 17:31
PROVIDERS: ADMIT Internal Medicine; ATTEND Internal Medicine
DX: G60.3 Idiopathic progressive neuropathy (principal); E87.0 Hyperosmolality and hypernatremia; N17.9 Acute kidney failure, unspecified; N30.00 Acute cystitis without hematuria; Z16.12 Extended spectrum beta lactamase (ESBL) resistance; B37.0 Candidal stomatitis; R62.7 Adult failure to thrive; Z68.23 Body mass index [BMI] 23.0-23.9, adult; E86.0 Dehydration; D75.1 Secondary polycythemia; E83.39 Other disorders of phosphorus metabolism; B96.20 Unspecified Escherichia coli [E. coli] as the cause of diseases classified elsewhere
CPT/HCPCS: 36415; 51702; 70450; 71045; 74018; 80048; 80053; 80076; 81003; 82040; 82947; 83605; 83690; 83735; 83880; 84100; 84134; 84443; 84484; 85025; 85610; 87040; 87077; 87086; 87088; 87186; 93005; 94640; 94760; 96361; 96365; 96367; 96368; 96375; 97161; 99285; J0696; J1644; J1720; J2930; J3411; J7030; J7799